=== PATIENT | male | born 1945 | race Caucasian/White ===

== ENCOUNTER 2020-06-29 09:38 | Emergency (ER) | payer MEDICARE, OTHER, SELFPAY ==
[2020-06-29 09:50] VITALS: BP 132/63; PULSE 65; RESP 20; TEMP 36.7; O2SAT 100
--- NOTE | 2020-06-29 10:04 | ED.ABDPAIN ---
HPI - Abdominal Pain General Chief Complaint: Abdominal Pain Stated Complaint: Stomach pain Time Seen by Provider: 06/29/20 10:04 Mode of arrival: ambulatory Limitations: no limitations History of Present Illness HPI narrative: Hema Smith is a 75 yo male with a PMH of HTN,high cholesterol, skin cancer, who comes to express care for complaints of mid abdominal pain intermittently for the last week, states no nausea vomiting diarrhea.. Has history of chronic GERD that intermittently occurs is currently taking omeprazole. Scheduled for bilateral knee surgery starting next week and wants to make sure that this is under control prior to surgery; has had multiple blood draws in the last 2 weeks including his preop blood draw that shows no abnormalities; has had 2 urine screens that show no abnormalities Related Data Allergies Allergy/AdvReac Type Severity Reaction Status Date / Time No Known Allergies Allergy Verified 06/29/20 10:00 Review of Systems Review of Systems: Narrative: CONSTITUTIONAL: Denies fever, chills, sweats. EYES: Denies visual changes, redness, discharge. ENT: Denies rhinorrhea, congestion, sore throat, otalgia. CARDIOVASCULAR: Denies chest pain, palpitations, edema. RESPIRATORY: Denies dyspnea, wheezing, cough GASTROINTESTINAL: Has mid abdominal pain, nausea, vomiting, diarrhea. Unremitting gas GENITOURINARY: Denies dysuria, hematuria, abnormal discharge SKIN: Denies rash or itching. NEUROLOGIC: Denies numbness, or focal weakness. PSYCHIATRIC: Denies anxiety or depression. PMFSH Past Medical History Medical History (Updated 06/29/20 @ 10:26 by Kelsey Hodges CNP) CAD (coronary artery disease) GERD (gastroesophageal reflux disease) Hypertension Surgical History Surgical History (Updated 06/29/20 @ 10:21 by Kelsey Hodges CNP) Stented coronary artery Family History Family History Other Hypertension Social History Social History Smoking status: Never smoker Alcohol intake: current Exam Narrative: Exam Narrative: GENERAL: This is a well-nourished, well-developed patient, in mild distress. HEAD: normocephalic, atraumatic. EYES: PERRL. Sclera clear/white. Vision is grossly intact. EARS: External ears normal, auditory canals clear and without drainage, TMs normal without perforation. Hearing grossly intact. NOSE: External nose normal without nasal discharge, nares without redness, no rhinorrhea. THROAT: Mucous membranes moist, posterior pharynx NECK: Neck supple, non-tender CARDIOVASCULAR: Regular rate and rhythm without murmurs, gallops, or rubs. RESPIRATORY: Clear to auscultation. Breath sounds equal bilaterally. No wheezes, rales, or rhonchi. GASTROINTESTINAL: Abdomen soft, mild tender, active bowel sounds SKIN: warm, intact with no suspicious lesions or rash, good texture and turgor. NEURO: awake, alert, and oriented to person, place and time. There were no obvious focal neurologic abnormalities. Steady gait EXTREMITIES: Normal range of motion. BACK: Nontender without deformity Course Course Emergency Course: Urine dip is negative Started on Protonix stop omeprazole, started on Bentyl and Gaviscon. If starts to run fever are pain increases he is to go to the ER get a CAT scan Vital Signs Vital signs: Vital Signs Temperature 98.1 F 06/29/20 09:50 Pulse Rate 65 06/29/20 09:50 Respiratory Rate 06/29/20 09:50 Blood Pressure 132/63 06/29/20 09:50 Pulse Oximetry 100 06/29/20 09:50 Temperature 98.1 F 06/29/20 09:50 Pulse Rate 65 06/29/20 09:50 Respiratory Rate 06/29/20 09:50 Blood Pressure 132/63 06/29/20 09:50 Pulse Oximetry 100 06/29/20 09:50 MDM - Abdominal Pain Differential Diagnosis Differential diagnosis: Likely abdominal pain, acute appendicitis, small bowel obstruction and other Lab Data Labs: Urine Gluco
== END 2020-06-29 10:35 | disposition home or self-care (01) ==
PROVIDERS: Emergency Provider Nurse Practitioner; PCP Family Medicine
DX: R10.9 Unspecified abdominal pain (principal); B96.20 Unspecified Escherichia coli [E. coli] as the cause of diseases classified elsewhere; K21.9 Gastro-esophageal reflux disease without esophagitis; I10 Essential (primary) hypertension; Z95.5 Presence of coronary angioplasty implant and graft; E78.00 Pure hypercholesterolemia, unspecified; Z85.828 Personal history of other malignant neoplasm of skin
CPT/HCPCS: 81003; 87077; 87086; 87088; 87186; 99213; G0463

== ENCOUNTER → 2021-05-28 08:55 | Outpatient (REF) | payer MEDICARE, OTHER, SELFPAY | LOC: ANHLAB 08:55 | PROVIDERS: PCP Family Medicine; Visit Provider Nurse Practitioner | DX: C44.42 Squamous cell carcinoma of skin of scalp and neck (principal) | CPT/HCPCS: 88305; 88331 ==

== ENCOUNTER → 2022-01-14 09:08 | Outpatient (REF) | payer MEDICARE, OTHER, SELFPAY | LOC: ANHLAB 09:08 | PROVIDERS: PCP Family Medicine; Visit Provider Nurse Practitioner | DX: C44.42 Squamous cell carcinoma of skin of scalp and neck (principal) | CPT/HCPCS: 88305; 88331 ==

== ENCOUNTER 2023-03-10 07:52 | Outpatient (NON) | payer MEDICARE, SELFPAY | END 2023-03-10 07:53 | disposition home or self-care (01) | LOC: ANHLAB 07:59 | PROVIDERS: PCP Family Medicine; Visit Provider Nurse Practitioner | DX: C44.92 Squamous cell carcinoma of skin, unspecified (principal) | CPT/HCPCS: 88305; 88331 ==